=== PATIENT | female | born 1975 | race Caucasian/White ===

== ENCOUNTER → 2021-06-04 | Outpatient (CLI) | payer BC ==
[~2021-06-04] MED LIST: ADIPEX-P37.5 M1 PO; ALEVE 220MG220 MG PO; CLARITIN 1010 MG/TAB PO; FLONASE NASAL S16 GM NS; PROTONIX 40MG T40 MG PO; SYNTHROID0.175 MG PO
== END ==
LOC: COL.RAD 11:46
DX: M51.37 Other intervertebral disc degeneration, lumbosacral region (principal); M47.817 Spondylosis without myelopathy or radiculopathy, lumbosacral region

== ENCOUNTER → 2021-07-23 | Outpatient (CLI) | payer BC | LOC: MC.RAD 07:55 | DX: Z12.31 Encounter for screening mammogram for malignant neoplasm of breast (principal) ==